=== PATIENT | male | born 1955 ===

== ENCOUNTER 2018-01-16 08:00 | Emergency (ER) | payer MEDICARE ==
[2018-01-16 08:07] VITALS: TEMP 98.1
[2018-01-16 08:56] LABS: URINE BACTERIA RARE (<OCC); URINE BILIRUBIN NEGATIVE (NEGATIVE); URINE BLOOD 1+ (NEGATIVE); URINE CLARITY Clear (Clear); URINE COLOR Straw (YELLOW); URINE GLUCOSE (UA) NORMAL (Normal); URINE LEUKOCYTE ESTERASE NEG Leu/uL (Negative); URINE PROTEIN NEGATIVE (NEGATIVE); URINE UROBILINOGEN NORMAL mg/dL (0.2-1.0)
--- NOTE | 2018-01-16 09:03 | C.PDOC ---
History Of Present Illness 62 y/o male brought to ED by BLS with c/o unable to urinate since 5 am this morning. Patient states this has happened before in [place] and has not seen urologist since. Patient denies penile discharge, hematuria, fever, nausea, vomiting or any other complaints at this time. Time Seen by Provider: 01/16/18 08:06 Chief Complaint (Nursing): Male Genitourinary History Per: Patient History/Exam Limitations: no limitations Onset/Duration Of Symptoms: Hrs Current Symptoms Are (Timing): Still Present Past Medical History Reviewed: Historical Data, Nursing Documentation, Vital Signs Vital Signs: Last Vital Signs Temp 98.1 F 01/16/18 08:05 Pulse 88 01/16/18 09:27 Resp 17 01/16/18 09:27 BP 128/72 01/16/18 09:27 Pulse Ox 98 01/16/18 09:27 - Medical History PMH: No Chronic Diseases, HTN Surgical History: No Surg Hx Family History: States: No Known Family Hx - Social History Hx Alcohol Use: No Hx Substance Use: No Review Of Systems Except As Marked, All Systems Reviewed And Found Negative. Constitutional: Negative for: Fever, Chills Gastrointestinal: Negative for: Nausea, Vomiting Genitourinary: Positive for: Other (urine retention). Negative for: Frequency, Hematuria, Penile Discharge Skin: Negative for: Rash Physical Exam - Physical Exam Appears: Non-toxic, No Acute Distress Skin: Warm, Dry, No Rash Head: Atraumatic, Normacephalic Eye(s): bilateral: Normal Inspection Oral Mucosa: Moist Neck: Normal ROM, Supple Cardiovascular: Rhythm Regular Respiratory: Normal Breath Sounds, No Rales, No Rhonchi, No Wheezing Gastrointestinal/Abdominal: Soft, No Tenderness, No Guarding, No Rebound Back: Normal Inspection, No CVA Tenderness Extremity: Normal ROM, No Swelling Neurological/Psych: Oriented x3, Normal Speech, Normal Motor Gait: Steady ED Course And Treatment O2 Sat by Pulse Oximetry: 99 (RA) Pulse Ox Interpretation: Normal Medical Decision Making Medical Decision Making: Progress: NICK Lal put in goodrich, 800cc urine was released On re eval patient is feeling better and is okay with plan of discharge with leg bag and f.u with urologist in 2 days Disposition - Disposition Referrals: Jey Curtis MD [Staff Provider] - Disposition: HOME/ ROUTINE Disposition Time: 09:00 Condition: STABLE Additional Instructions: FOLLOW UP WITH THE UROLOGIST WITHIN 1-2 DAYS WITHOUT FAIL. RETURN IF WORSENED. 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 - Scribe Statement The provider has reviewed the documentation as recorded by the Scribselvin Bryson All medical record entries made by the Quanibselvin were at my direction and personally dictated by me. I have reviewed the chart and agree that the record accurately reflects my personal performance of the history, physical exam, medical decision making, and the department course for this patient. I have also personally directed, reviewed, and agree with the discharge instructions and disposition.
[2018-01-16 09:28] VITALS: BP 128/72; PULSE 88; RESP 17
[2018-01-19 13:56] VITALS: O2SAT 99
== END 2018-01-16 09:43 | disposition home or self-care (01) ==
LOC: C.ER 08:00
DX: R33.9 Retention of urine, unspecified (principal)

== ENCOUNTER 2018-01-16 22:37 | Emergency (ER) | payer MEDICARE ==
[2018-01-16 23:21] VITALS: BP 138/90; PULSE 74; RESP 20; TEMP 98.8; O2SAT 98
--- NOTE | 2018-01-16 23:38 | C.PDOC ---
History Of Present Illness 62 year old male presents to ED requesting removal of goodrich catheter. He reports it was placed earlier today. He is finding it uncomfortable and wants it removed. Time Seen by Provider: 01/16/18 23:26 Chief Complaint (Nursing): Male Genitourinary History Per: Patient History/Exam Limitations: no limitations Onset/Duration Of Symptoms: Hrs Current Symptoms Are (Timing): Still Present Associated Symptoms: denies: Fever, Chills Alleviating Factors: None Recent travel outside of the [place]: No Past Medical History Reviewed: Historical Data, Nursing Documentation, Vital Signs Vital Signs: Last Vital Signs Temp 98.8 F 01/16/18 23:18 Pulse 74 01/16/18 23:18 Resp 20 01/16/18 23:47 BP 138/90 01/16/18 23:18 Pulse Ox 98 01/16/18 23:38 - Medical History PMH: HTN Family History: States: Unknown Family Hx - Social History Hx Alcohol Use: No Hx Substance Use: No - Immunization History Hx Tetanus Toxoid Vaccination: No Hx Influenza Vaccination: Yes Hx Pneumococcal Vaccination: No Review Of Systems Constitutional: Negative for: Fever, Chills Gastrointestinal: Negative for: Abdominal Pain Genitourinary: Positive for: Other (Goodrich catheter). Negative for: Hematuria, Scrotal Pain, Penile Pain Physical Exam - Physical Exam Appears: Non-toxic Skin: Normal Color, Warm, Dry Head: Atraumatic, Normacephalic Eye(s): bilateral: Normal Inspection Gastrointestinal/Abdominal: Soft, No Tenderness Male Genital: Other (goodrich catheter in place, no blood. clear urine in bag) Extremity: Normal ROM (x4) Neurological/Psych: Oriented x3, Normal Speech Gait: Steady ED Course And Treatment O2 Sat by Pulse Oximetry: 98 Medical Decision Making Medical Decision Making: Explain to patient goodrich placed for urinary retention and removing goodrich may result in retention. He expressed understanding and still wants the goodrich removed. Goodrich was removed without difficult. 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 - Scribe Statement The provider has reviewed the documentation as recorded by the Scribe Dewey Hillman All medical record entries made by the Quanibe were at my direction and personally dictated by me. I have reviewed the chart and agree that the record accurately reflects my personal performance of the history, physical exam, medical decision making, and the department course for this patient. I have also personally directed, reviewed, and agree with the discharge instructions and disposition.
== END 2018-01-16 23:47 | disposition home or self-care (01) ==
LOC: C.ER 22:37
DX: Z46.6 Encounter for fitting and adjustment of urinary device (principal)